=== PATIENT | male | born 1980 | race African-American/Black ===

== ENCOUNTER 2020-06-22 01:24 | Emergency (ER) | payer OTHER ==
[~2020-06-22] VITALS: Ht 177.8 cm; Wt 86.2 kg
[2020-06-22 01:38] VITALS: BP 126/101
--- NOTE | 2020-06-22 02:48 | NUR ---
pt discharged back to [facility] [employer] #[id number].
== END 2020-06-22 02:51 ==
LOC: MED 01:24
DX: F10.129 Alcohol abuse with intoxication, unspecified (principal); Z02.89 Encounter for other administrative examinations; V89.2XXA Person injured in unspecified motor-vehicle accident, traffic, initial encounter; Y93.89 Activity, other specified; Y92.89 Other specified places as the place of occurrence of the external cause; Y99.8 Other external cause status
CPT/HCPCS: 99283